=== PATIENT | male | born 1970 | race Caucasian/White ===

== ENCOUNTER 2016-05-18 17:27 | Emergency (ER) ==
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
[2016-05-18 17:43] VITALS: BP 144/103; TEMP 98.6; BMI 27.1
[2016-05-18] MEDS ORDERED: NORCO 10-325 PO STA (17:47)
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
== END 2016-05-18 19:14 | disposition home or self-care (01) ==
LOC: ED 17:27
DX: S83.411A Sprain of medial collateral ligament of right knee, initial encounter (principal); F17.210 Nicotine dependence, cigarettes, uncomplicated; X50.1XXA Overexertion from prolonged static or awkward postures, initial encounter
CPT/HCPCS: 99283